=== PATIENT | female | born 1950 | race Caucasian/White ===

== ENCOUNTER → 2023-06-01 06:26 | Day surgery (SDC) | payer MEDICARE, OTHER, SELFPAY | LOC: GI 06:26 | PROVIDERS: ATTENDING PHYSICIAN Internal Medicine Gastroenterology | DX: Z12.11 Encounter for screening for malignant neoplasm of colon (principal); Z86.010 Personal history of colon polyps; K64.8 Other hemorrhoids; K57.30 Diverticulosis of large intestine without perforation or abscess without bleeding | CPT/HCPCS: G0105 ==

== ENCOUNTER → 2024-08-16 14:35 | Outpatient (REF) | payer MEDICARE, OTHER, SELFPAY | LOC: WDC 14:35 | PROVIDERS: ATTENDING PHYSICIAN Nurse Practitioner Family | DX: Z12.31 Encounter for screening mammogram for malignant neoplasm of breast (principal); M81.0 Age-related osteoporosis without current pathological fracture | CPT/HCPCS: 77063; 77067 ==

== ENCOUNTER 2025-04-13 23:07 | Inpatient (IN) | payer OTHER, SELFPAY ==
[2025-04-13 18:29] VITALS: BP 168/102
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
[2025-04-14] MEDS: ROXICODONE 5 MG PO (01:00)
[2025-04-14 01:07] VITALS: BP 150/86
[2025-04-14 01:36] VITALS: BP 161/90; BMI 22.9
[2025-04-14] MEDS: COLACE 100 MG PO ×3 (02:06→20:55)
[2025-04-14] MEDS: SENOKOT 17.2 MG PO ×3 (02:06→20:55)
[2025-04-14] MEDS: DILAUDID 0.5 MG IV ×4 (02:06→22:20)
--- NOTE | 2025-04-14 02:10 | PTCARENOTE ---
Pt received from ED via stretcher accompanied by ED staff around 0130. AAOx3, stood on left leg and pivoted to bed. VSS w/complaints of 8/10 pain. PRN Dilaudid administered as ordered. Pt oriented to room with call burgos within reach.
[2025-04-14 07:35] VITALS: BP 149/90
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
[2025-04-14] MEDS: ADDERALL 40 MG PO (08:57)
[2025-04-14] MEDS: ORETIC 25 MG PO (08:58)
[2025-04-14] MEDS: COZAAR 100 MG PO (08:58)
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
[2025-04-14] MEDS: SYNTHROID 25 MCG PO (12:43)
[2025-04-14 15:45] VITALS: BP 164/95
[2025-04-14] MEDS: ZOFRAN 4 MG IV (17:05)
[2025-04-14 23:39] VITALS: BP 135/73
[2025-04-15] VITALS (10 sets, daily range): BP systolic 100–159; BP diastolic 55–88
[2025-04-15] MEDS: SYNTHROID 25 MCG PO (04:49)
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
[2025-04-15] MEDS: COZAAR 100 MG PO (09:04)
[2025-04-15] MEDS: COLACE 100 MG PO ×2 (09:04→19:58)
[2025-04-15] MEDS: ADDERALL 40 MG PO (09:04)
[2025-04-15] MEDS: SENOKOT 17.2 MG PO ×2 (09:04→19:58)
[2025-04-15] MEDS: CRESTOR 5 MG PO (09:05)
[2025-04-15 09:42] LABS: Hematocrit 39.0 % (37.0-47.0); Hemoglobin 12.8 g/dL (12.0-16.0); Mean Corp Hgb Conc. 32.8 g/dL (33.0-37.0); Mean Corpuscular Volume 93.1 fL (81.0-99.0); Nucleated Red Blood Cells % 0 %; Platelet Count 245 10^3/uL (130-400); Red Cell Dist. Width 13.1 % (11.5-14.5)
[2025-04-15 10:31] LABS: ALT (SGPT) 15 U/L (0-35); AST (SGOT) 21 U/L (14-36); Albumin 4.2 g/dl (3.5-5.0); Alkaline Phosphatase 82 U/L (38-126); Blood Urea Nitrogen 13 mg/dl (7-17); Calcium 10.1 mg/dl (8.4-10.2); Carbon Dioxide 29 mmol/L (22-30); Chloride 95 mmol/L (98-107); Estimated Creatinine Clearance 53 ml/min; Glucose 112 mg/dl (70-99); Potassium 3.6 mmol/L (3.5-5.1); Sodium 132 mmol/L (135-145); Total Protein 7.3 g/dl (6.3-8.2); eGFR > 60.00
--- NOTE | 2025-04-15 16:44 | W.PN.UPDATE ---
Update Note
Progress Note Update
74F s/p Right ankle application of multiplanar external fixator, fibula ORIF.
- Strict NWB RLE
- PT/OT
- Dressings remain c/d/i
- elevate RLE 2-3 pillows
- ice behind the knee prn
- PT/OT
- postop analgesia
- sx ppx abx 24 hrs, not a barrier to discharge
- DVT ppx
- will reassess on AM rounds, patient may likley follow up in office with myself Walker for definitive surgical planning.
--- NOTE | 2025-04-15 16:45 | PTCARENOTE ---
Pt left floor for a surgical procedure of her R ankle. She will be going to 2S post op.
--- NOTE | 2025-04-15 17:28 | CM ---
Pt is post-surgery today on r ankle. Transferred to rm [id number]. Will attempt to perform IA if family members are present.
Plan: Pending PT consult post-op
--- NOTE | 2025-04-15 18:12 | CM ---
IA completed with pt bedside post-op. No complaints of pain at this time. Pt is IND at home. Lives with her in a 1 story home with no steps at the entrance. No hx of HH, home O2 or SNF. NO insecurities identified. Confirmed that pt has a PCP
and will have it added to the computer, confirmed Rx, insurance - [employer]
PCP: Fouzia Paniagua
Rx: [facility] [place]
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
Has RW but is not in use.
Plan: TBD PT Eval pending
[2025-04-15 18:56] LABS: Hepatitis C Antibody Negative (Negative)
[2025-04-15] MEDS: NEURONTIN 300 MG PO (21:32)
[2025-04-15] MEDS: ANCEF 5 IV (21:32)
[2025-04-16 03:08] VITALS: BP 132/72
[2025-04-16] MEDS: SYNTHROID 25 MCG PO (05:01)
[2025-04-16] MEDS: ANCEF 5 IV ×2 (05:01→13:14)
[2025-04-16 06:24] LABS: Hematocrit 36.1 % (37.0-47.0); Hemoglobin 12.3 g/dL (12.0-16.0); Mean Corp Hgb Conc. 34.1 g/dL (33.0-37.0); Mean Corpuscular Volume 90.5 fL (81.0-99.0); Nucleated Red Blood Cells % 0 %; Platelet Count 240 10^3/uL (130-400); Red Cell Dist. Width 12.7 % (11.5-14.5)
--- NOTE | 2025-04-16 06:53 | W.PN.UPDATE ---
Update Note
Progress Note Update
74F s/p Right ankle application of multiplanar external fixator, fibula ORIF. Doing well this AM, no pain. toes well perfused, sensation intact to pedal distributions, calf soft supple nontender to touch, AROM/PROM of toes w/o pain, dressings
c/d/i.
- Strict NWB RLE
- post op CT to be done for surgical planning prior to dc
- PT/OT
- Dressings remain c/d/i
- elevate RLE 2-3 pillows
- ice behind the knee prn
- PT/OT
- postop analgesia
- sx ppx abx 24 hrs, not a barrier to discharge
- DVT ppx
- patient may follow up in office with me Tuesday for definitive surgical planning.
[2025-04-16 06:54] LABS: ALT (SGPT) 11 U/L (0-35); AST (SGOT) 20 U/L (14-36); Albumin 3.9 g/dl (3.5-5.0); Alkaline Phosphatase 77 U/L (38-126); Blood Urea Nitrogen 20 mg/dl (7-17); Calcium 9.5 mg/dl (8.4-10.2); Carbon Dioxide 28 mmol/L (22-30); Chloride 98 mmol/L (98-107); Estimated Creatinine Clearance 47 ml/min; Glucose 128 mg/dl (70-99); Potassium 4.5 mmol/L (3.5-5.1); Sodium 133 mmol/L (135-145); Total Protein 6.6 g/dl (6.3-8.2); eGFR > 60.00
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
[2025-04-16 07:25] VITALS: BP 140/86
[2025-04-16] MEDS: NEURONTIN 300 MG PO (08:54)
[2025-04-16] MEDS: ADDERALL 40 MG PO (08:54)
[2025-04-16] MEDS: COLACE 100 MG PO (08:54)
[2025-04-16] MEDS: ELIQUIS 5 MG PO (08:54)
[2025-04-16] MEDS: COZAAR 100 MG PO (08:54)
[2025-04-16] MEDS: SENOKOT 17.2 MG PO (08:54)
[2025-04-16 10:04] VITALS: BP 146/82; PULSE 96
[2025-04-16 11:01] VITALS: BP 124/66
--- NOTE | 2025-04-16 13:13 | CM ---
Per PT no home PT needed
Patient reported that will transport home
Reported she will have assistance at home and does not need home health/VN
Plan: Discharge to home; no needs
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
== END 2025-04-16 14:40 | disposition home or self-care (01) | DRG 494 ==
LOC: 2 SOUTH 23:07
PROVIDERS: Student in an Organized Health Care Education/Training Program; ADMITTING PHYSICIAN Internal Medicine; ATTENDING PHYSICIAN Hospitalist; EMERGENCY PHYSICIAN Emergency Medicine; FAMILY PHYSICIAN Nurse Practitioner Family; OTHER PHYSICIAN Student in an Organized Health Care Education/Training Program
PROC: 0QSJ04Z Reposition Right Fibula with Internal Fixation Device, Open Approach (ICD-10-PCS; 2025-04-15)
PROC: 0QHJ35Z Insertion of External Fixation Device into Right Fibula, Percutaneous Approach (ICD-10-PCS; 2025-04-15)
DX: S82.871A Displaced pilon fracture of right tibia, initial encounter for closed fracture (principal); S82.431A Displaced oblique fracture of shaft of right fibula, initial encounter for closed fracture; E78.00 Pure hypercholesterolemia, unspecified; E03.9 Hypothyroidism, unspecified; I10 Essential (primary) hypertension; V47.5XXA Car driver injured in collision with fixed or stationary object in traffic accident, initial encounter; Y93.I9 Activity, other involving external motion; Y92.410 Unspecified street and highway as the place of occurrence of the external cause; Z90.710 Acquired absence of both cervix and uterus; Z79.890 Hormone replacement therapy
CPT/HCPCS: 73590; 73610; 73700; 76000; 80053; 85025; 86803; 86850; 86900; 86901; 93005; 97162; 97166; 99284